=== PATIENT | female | born 1990 | race Caucasian/White ===

== ENCOUNTER 2023-09-18 14:17 | Day surgery (SDC) | payer MEDICARE, OTHER ==
[~2023-09-18 14:17] MED LIST: Atropine Sulfate 0.1 MG/ML 10ML SYR ONE; Glycopyrrolate 0.2 MG/ML 1MLVIAL ONE; Lactated Ringer's 0 ML IV ONE; Lidocaine 2% 5 ML SDV ONE; Lidocaine HCl/Pf 1% 5 ML VIAL ONE; Methylene Blue 1% 100 MG/10 ML VIAL ONE; Ondansetron HCl 2 MG / ML 2ML Vial ONE; ePHEDrine Sulfate 50 MG/ML 1ML Injection ONE; propofoL 0 ML IV ONE
== END 2023-09-18 14:45 | disposition home or self-care (01) ==
LOC: ORSCSDS 14:17
DX: R10.13 Epigastric pain (principal); K62.5 Hemorrhage of anus and rectum; Z53.9 Procedure and treatment not carried out, unspecified reason
CPT/HCPCS: J0461; J2001; J2405; J2704; J7120; Q9968